=== PATIENT | male | born 1985 | race Caucasian/White ===

== ENCOUNTER 2017-06-13 06:17 | Emergency (ER) | payer OTHER ==
[~2017-06-13] VITALS: Ht 182.9 cm; Wt 106.6 kg
[2017-06-13 06:37] LABS: ABSOLUTE BASOPHILS 0.1 thou/uL (0.0-0.2); ABSOLUTE EOSINOPHILS 0.1 thou/uL (0.0-0.7); ABSOLUTE LYMPHOCYTES 2.9 thou/uL (0.8-5.3); ABSOLUTE MONOCYTES 0.5 thou/uL (0.0-1.2); ABSOLUTE NEUTROPHILS 3.7 thou/uL (1.6-8.1); EOSINOPHILS 1.4 %; HEMATOCRIT 50.5 % (42.0-52.0); HEMOGLOBIN 17.3 gm/dL (14.0-18.0); LYMPHOCYTES 39.9 %; MCH 30.8 pg (26.0-34.0); MCHC 34.1 g/dL (28.0-37.0); MCV 90.4 fL (80.0-100.0); MONOCYTES 6.7 %; MPV 8.4 fl. (7.2-11.1); NUCLEATED RBCS 0 /100WBC; PLATELET COUNT* 330 thou/uL (150-400); RBC 5.59 mil/uL (4.50-6.00); RDW-CV 13.6 % (10.5-14.5); WBC 7.3 thou/uL (4.0-11.0)
[2017-06-13 06:42] LABS: ANION GAP 5 mmol/L (7-16); BUN 12 mg/dL (7-18); CALCIUM 9.2 mg/dL (8.5-10.1); CHLORIDE 105 mmol/L (98-107); CO2 30 mmol/L (21-32); CREATININE 1.1 mg/dL (0.6-1.3); GLUCOSE 95 mg/dL (70-99); POTASSIUM 3.9 mmol/L (3.5-5.1); SODIUM 140 mmol/L (136-145)
[2017-06-13 06:48] LABS: ALBUMIN 4.2 g/dL (3.4-5.0); ALKALINE PHOSPHATASE 80 U/L (46-116); LIPASE 87 U/L (73-393); MAGNESIUM 2.1 mg/dL (1.8-2.4); SGOT 23 U/L (15-37); SGPT 42 U/L (30-65); TOTAL BILIRUBIN 0.5 mg/dL (<0.1-1.0); TOTAL PROTEIN 8.1 g/dL (6.4-8.2); TROPONIN-I LEVEL <0.06 ng/mL (<0.06)
[2017-06-13 09:12] VITALS: BP 124/80
--- NOTE | 2017-06-13 14:28 | EKG ---
[place] [address] ELECTROCARDIOGRAM REPORT Name: PADMAJA MCLAUGHLINY Natalia Room: [facility]#: [id number] Admission: 06/13/17 Attend Phys: Discharge: 06/13/17 Date of : 87 Report #: [id number] THIS REPORT FOR: //name// [facility] ED Test Date: 2017-06-13 Test Time: 06:20:28 Pat Name: TERRA MCLAUGHLIN Department: Room: Gender: M Welder Plasma Arc: ANGELO : 1985 Requested By: Alonzo Veliz Order Number: [id number] MD: Gilbert Bradley Measurements Intervals [place] Rate: 68 P: -3 MD: 154 QRS: 6 QRSD: 98 T: 35 QT: 393 QTc: 418 Interpretive Statements Sinus rhythm ST elev, probable normal early repol pattern No previous ECG available for comparison Electronically Signed On 06-13-2017 14:28:09 CDT by Gilbert Bradley [email or web address] <ELECTRONICALLY SIGNED> By: Gilbert Bradley MD, [facility] 06/13/17 1428 9 9 Gilbert Bradley MD, [facility] /EPI
== END 2017-06-13 09:16 | disposition home or self-care (01) ==
LOC: M.ERS 06:17
PROVIDERS: Emergency Medicine Emergency Medical Services
DX: R07.89 Other chest pain (principal)

== ENCOUNTER → 2017-06-25 | Outpatient (CLI) | payer OTHER | LOC: M.ULTRA 08:55 | DX: K80.20 Calculus of gallbladder without cholecystitis without obstruction (principal); R16.1 Splenomegaly, not elsewhere classified ==